=== PATIENT | male | born 1960 | race African-American/Black ===

== ENCOUNTER 2020-11-05 02:47 | Emergency (ER) | payer OTHER ==
[~2020-11-05] VITALS: Ht 170.2 cm; Wt 64.0 kg
[2020-11-05 12:44] VITALS: BP 111/67
== END 2020-11-05 12:40 | disposition home or self-care (01) ==
LOC: ER 02:47
DX: F10.129 Alcohol abuse with intoxication, unspecified (principal); R51.9 Headache, unspecified; G40.909 Epilepsy, unspecified, not intractable, without status epilepticus; F12.90 Cannabis use, unspecified, uncomplicated; W18.39XA Other fall on same level, initial encounter; Y93.89 Activity, other specified; Y92.89 Other specified places as the place of occurrence of the external cause; Y99.8 Other external cause status